=== PATIENT | male | born 1965 | race Caucasian/White ===

== ENCOUNTER 2017-04-07 14:38 | Outpatient (CLI) | payer OTHER ==
[~2017-04-07] VITALS: Ht 188 cm; Wt 106.0 kg
[2017-04-07 14:59] VITALS: BP 113/71; PULSE 90; RESP 18; Ht 188 cm; Wt 106.0 kg
[2017-04-07] MEDS ORDERED: ASPI-664 PO (15:48)
[2017-04-07] MEDS ORDERED: APIX2.5T PO (15:57)
[2017-04-07] MEDS ORDERED: CLOP75TA28 PO (15:57)
[2017-04-07] MEDS ORDERED: DOCU240C55 PO (15:57)
[2017-04-07] MEDS ORDERED: LANT3I SC (15:57)
[2017-04-07] MEDS ORDERED: NOVO7030 SC (15:57)
[2017-04-07] MEDS ORDERED: FURO40TA4 PO (15:57)
[2017-04-07] MEDS ORDERED: LISI10TA2 PO (15:57)
[2017-04-07] MEDS ORDERED: CARV12.579 PO (15:57)
[2017-04-07] MEDS ORDERED: NITR0.4T6 SL (15:57)
[2017-04-07] MEDS ORDERED: METF1000 PO (15:57)
[2017-04-07] MEDS ORDERED: ATOR80TA75 PO (15:57)
--- NOTE | 2017-04-07 16:25 | PN ---
Date/Time of Note Date/Time of Note DATE: 04/07/17 TIME: 16:18 Outpatient Progress Note Chief Complaint CHF/ASHD/hypertension/diabetes/leg pain/cardiomyopathy HPI CHF/patient was recently admitted with CHF, patient has cardiomyopathy, patient shortness of breath improved significantly, at present patient feel comfortable, ASHD/no chest pain, no PND orthopnea, patient had unstable angina, patient had left circumflex coronary artery stent, Hypertension/no headache dizziness, no PND orthopnea, patient had slight renal insufficiency, Diabetes/no polydipsia polyuria hypoglycemia, gastroparesis, Neck pain,/patient had leg pain, improved significantly, patient had recurrent a DVT, patient on medication, Cardiomyopathy/patient has cardiac myopathy, patient has ejection fraction of 35 %, Review of Systems Const: No Fever, no chills, no Wt. loss, no Fatigue, normal appetite, no diaphoresis. Slightly obese Eyes: No pain, no discharge, no redness, no visual change, no foreign body. ENT: No pain, no bleeding, no congestion, no sore throat, no dysphagia, no discharge or rhinitis. Lymph: No adenopathy, no tender nodes, no lymphedema. Resp: No SOB, no cough, no sputum, no wheezing, no chest pain. CV: No chest pain, no palpitaions, no BENEDICT, no PND, no edema. GI: Normal appetite, no pain, no nausea, no vomiting, no diarrhea, no blood, no constipation. : No frequency, no urgency, no dysuria, no hematuria, no flank pain, no discharge, no bleeding. Musc: No back pain, no neck pain, no knee pain, no restricted ROM. Skin: No rash, no skin lesions, no erythema, no laceration, no bruising, no pruritus. Neuro: No RICARDO, no dizziness, no syncope, no seizure, no focal-weakness. Endo: No polyuria, no polydypsia, no dry-skin, no temp-intolerance. Psych: No hallucinations, no depression, no anxiety, no suicidal ideation. Ext: No edema, no pain, no ulcer, no weakness. Physical Exam Vital Signs Date Time Temp Pulse Resp B/P Pulse Ox O2 Delivery O2 Flow Rate FiO2 04/07/17 14:59 98.1 90 18 113/71 99 General Appearance: A 51 year-old male who appears well-developed, well- nourished, in no acute distress. HEENT: Head normocephalic, atraumatic. Pupils equal, round, reactive to light and accommodate. Sclerae are no jaundice. Nasal turbinates pink without erythema or nasal discharge. Mucous membranes pink and moist without lesions. Oropharynx clear without any exudate or discharge. NECK: Supple. Trachea midline, No thyromegaly, No cervical lymphadenopathy, No mass, No carotid bruits, No JVD, Carotid pulses 2+ bilaterally. PULMONARY: Clear to auscultaion bilaterally, No retractions, Chest expansion symmetric bilaterally, no rales, no ronchi, no dulness on percussion. CARDIAC: Normal SI and S2, Regular rate and rythm, no murmur, gallop, or rub. GASTROINTESTINAL: Abdomen is soft, non-tender, Non Rigid, No distention, Positive bowel sounds x4 quadrants, Liver normal. SKIN: Warm, dry, no rash, no bruise, no echmosis. EXTREMITIES: Bilateral lower extremities normal, no edema, left leg slight discomfort, pulse palpable, no contracture. MUSCULOSKELETAL: Spine Normal, Non-tender, Normal range of motion, No swelling, no deformity, no clubbing, or cyanosis, the patient has no edema to bilateral lower extremities, dorsalis pedis pulses palpable bilaterally. NEUROLOGIC: The patient is awake, alert, oriented, responding to yes/no questions appropriately, moving all extremities, cranial nerve intact, normal strenght, normal power, normal coordination, normal gait. Allergies Coded Allergies: No Known Allergy (Unverified , 04/07/17) PMH CHF/ASHD/hypertension/diabetes/PE/phlebitis/cardiomyopathy Social Hx No smoking no drinking, Family Hx Noncontributory Assessment/Plan Impression CHF improving ASHD/status post left circumflex coronary artery stent Hypertension Diabetes Leg pain/phlebitis Cardiomyopathy Plan Patient education done about above diseases, complication explained, patient very high risk for repeated admission, patient also very high risk for sudden , explained to the patient, Patient encouraged to follow with the primary care physician and cardiology, Monitor kidney functions, monitor ejection fraction, increase activity slowly, vision to follow with the primary care physician, patient will benefit from disability for a few weeks to few months, Medications Home Meds Reported Medications Metformin Hcl* (Metformin Hcl*) 1,000 Mg Tablet, 1000 MG PO WITH BREAKFAST, #30 TAB 04/07/17 Lisinopril* (Lisinopril*) 10 Mg Tablet, 10 MG PO DAILY, #30 TAB 04/07/17 Furosemide* (Furosemide*) 40 Mg Tablet, 40 MG PO DAILY, TAB 04/07/17 Carvedilol* (Carvedilol*) 12.5 Mg Tablet, 12.5 MG PO BID, #60 TAB 04/07/17 Apixaban* (Eliquis*) 2.5 Mg Tablet, 2.5 MG PO BID, TAB 04/07/17 Nitroglycerin* (Nitroglycerin* SL) 0.4 Mg Tab.subl, 0.4 MG SL Q5MIN Y for CHEST PAIN, BOTTLE 04/07/17 Insulin Isophan/Regular (Humulin 70/30) 100 Units/Ml Susp, 1 UNIT SC AC BREAKFAST, EA 04/07/17 Insulin Glargine* (Lantus*) 100 Unit/Ml Soln, 1 UNIT SC QHS, #1 VIAL 04/07/17 Docusate Calcium* (Stool Softener*) 240 Mg Capsule, 240 MG PO DAILY, CAP 04/07/17 Clopidogrel Bisulfate (Clopidogrel) 75 Mg Tablet, 75 MG PO DAILY, #30 TAB 04/07/17 Atorvastatin* (Atorvastatin*) 80 Mg Tablet, 80 MG PO QHS, #30 TAB 04/07/17 Aspirin (Low Dose Aspirin) 81 Mg Tablet., 81 MG PO DAILY, #30 TAB 04/07/17 GAURANG BASS MD Apr 07, 2017 16:25
== END 2017-04-07 16:10 | disposition home or self-care (01) ==
LOC: DCC 14:38
PROVIDERS: ATTEND Internal Medicine
DX: I50.9 Heart failure, unspecified (principal); I10 Essential (primary) hypertension; E11.9 Type 2 diabetes mellitus without complications; I25.10 Atherosclerotic heart disease of native coronary artery without angina pectoris; I42.9 Cardiomyopathy, unspecified